=== PATIENT | male | born 1950 | race Caucasian/White ===

== ENCOUNTER 2017-03-07 16:54 | Emergency (ER) | payer MEDICARE ==
[~2017-03-07] VITALS: Ht 170.2 cm; Wt 108.4 kg
[~2017-03-07 16:54] MED LIST: AUGMENTIN875 MG PO; BYSTOLIC10 MG PO; CARDIZEM CD,CA120 MG PO; CARDIZEM CD,CA240 MG PO; CARDIZEM LA240 MG PO; DIGITEK250 MC2 PO; DIGOX250 MCG PO; DILTIAZEM 24HR360 M1 PO; DIOVAN320 MG PO; ELIQUIS5 MG PO; FUROSEMIDE20 MG PO; GLIPIZIDE5 MG PO; LASIX20 MG PO; LOSARTAN POTAS100 MG PO; METFORMIN HCL1000 MG PO; MICARDIS80 MG PO; MOTRIN800 MG PO; MUCINEX600 MG PO; OMEPRAZOLE40 M1 PO; POTASSIUM CHLO10 ME3 PO; POTASSIUM CHLO10 ME4 PO; PREDNISONE10 MG PO; PROAIR HFA8.5 GM IH; TYLENOL REGULA325 MG PO; WELCHOL3.75 GM PO
[2017-03-07 17:50] LABS: HEMATOCRIT 36.7 % (38.0-50.0); HEMOGLOBIN 11.6 G/DL (12.5-16.6); MCH 26.9 PG (29.0-34.0); MCHC 31.6 G/DL (30.0-36.0); PLATELET COUNT 230 K/uL (156-360); RBC DIS.WIDTH-CV 15.2 % (11.8-14.6); RBC DIS.WIDTH-SD 47.6 % (39-53); RED BLOOD COUNT 4.32 M/uL (4.00-5.50); WHITE BLOOD COUNT 5.5 K/uL (4.1-10.2)
[2017-03-07 18:05] LABS: CHLORIDE 100 mEq/L (99-109); POTASSIUM 3.9 mEq/L (3.7-5.4); SODIUM 136 mEq/L (136-147)
[2017-03-07 18:06] LABS: GLUCOSE 172 mg/dL (70-99)
[2017-03-07 18:10] LABS: CREATININE 1.3 mg/dL (0.6-1.3); GFR ESTIMATE (CALCULATED) 59 mL/min/ (58.99-99999)
[2017-03-07 18:11] LABS: UREA NITROGEN (BUN) 19 mg/dL (9-23)
[2017-03-07] MEDS ORDERED: PREDNISONE50 MG PO (20:40)
[2017-03-07] MEDS ORDERED: ZITHROMAX Z-PA250 MG PO (20:40)
[2017-03-07 20:58] VITALS: BP 161/89
== END 2017-03-07 20:59 | disposition home or self-care (01) ==
LOC: EME 16:54
DX: J44.1 Chronic obstructive pulmonary disease with (acute) exacerbation (principal); J20.9 Acute bronchitis, unspecified; E11.9 Type 2 diabetes mellitus without complications; I11.0 Hypertensive heart disease with heart failure; I50.9 Heart failure, unspecified; K21.9 Gastro-esophageal reflux disease without esophagitis; Z79.84 Long term (current) use of oral hypoglycemic drugs; Z87.891 Personal history of nicotine dependence; Z98.61 Coronary angioplasty status; Z85.9 Personal history of malignant neoplasm, unspecified
CPT/HCPCS: 71020; 80048; 85027; 94640; 99281; 99284; J7512